=== PATIENT | female | born 1960 | race African-American/Black ===

== ENCOUNTER 2019-07-07 20:46 | Emergency (ER) | payer MEDICAID ==
[~2019-07-07] VITALS: Ht 170.2 cm; Wt 63.0 kg
[~2019-07-07 20:46] MED LIST: BENADRYL; IBUPROFEN; NEURONTIN; TYLENOL
[2019-07-07 21:12] VITALS: BP 122/90
[2019-07-07] MEDS ORDERED: PREDNISONE 20MG TABLET PO STA (23:09)
[2019-07-07] MEDS ORDERED: ALBUTEROL (0.083%) 2.5MG/3ML NEB HHN STA (23:09)
[2019-07-07] MEDS ORDERED: IPRATROPIUM BROMIDE (0.02%) 0.5MG/2.5ML NEB HHN STA (23:09)
[2019-07-07] MEDS ORDERED: IBUPROFEN 600MG TABLET PO ONE (23:15)
== END 2019-07-08 01:41 | disposition home or self-care (01) ==
LOC: ER 20:46
DX: S60.212A Contusion of left wrist, initial encounter (principal); J45.901 Unspecified asthma with (acute) exacerbation; J18.9 Pneumonia, unspecified organism; F31.9 Bipolar disorder, unspecified; F12.10 Cannabis abuse, uncomplicated; Z88.1 Allergy status to other antibiotic agents; W18.39XA Other fall on same level, initial encounter; Y93.89 Activity, other specified; Y92.89 Other specified places as the place of occurrence of the external cause; Y99.8 Other external cause status
CPT/HCPCS: 71045; 73110; 94640; 99283; J7512; J7611; Z7610

== ENCOUNTER 2019-07-11 08:04 | Emergency (ER) | payer MEDICAID ==
[~2019-07-11] VITALS: Ht 170.2 cm; Wt 62.0 kg
[2019-07-11] MEDS ORDERED: KETOROLAC 60MG/2ML VIAL IM STA (09:41)
[2019-07-11] MEDS ORDERED: LIDOCAINE HCL/PF 1% 10 MG/ML 5ML VIAL IJ ONE (10:15)
[2019-07-11 11:28] VITALS: BP 142/88
== END 2019-07-11 11:32 | disposition home or self-care (01) ==
LOC: ER 08:04
DX: S63.285A Dislocation of proximal interphalangeal joint of left ring finger, initial encounter (principal); W22.8XXA Striking against or struck by other objects, initial encounter; Y93.89 Activity, other specified; Y92.89 Other specified places as the place of occurrence of the external cause; Y99.8 Other external cause status; F12.10 Cannabis abuse, uncomplicated; J45.909 Unspecified asthma, uncomplicated; Z88.1 Allergy status to other antibiotic agents; Z79.899 Other long term (current) drug therapy
CPT/HCPCS: 29130; 73130; 73140; 96372; 99283; J1885; J3490; Z7610